=== PATIENT | female | born 1985 | race Caucasian/White ===

== ENCOUNTER 2016-10-23 11:10 | Emergency (ER) | payer OTHER ==
[2016-10-23 11:35] VITALS: BP 118/64
[2016-10-23] MEDS ORDERED: Ondansetron ODT TAB* 4 MG PO ONE (13:36)
--- NOTE | 2016-10-23 13:58 | UC ---
General HPI - HPI Summary HPI Summary: 30 female presents today complaining of nausea, abdominal tenderness, and a rash that began 2-3 days ago. Patient states it began after eating at a [employer] restaurant. admits to having episodes of diarrhea and states "wherever I touch my abdomen my legs anywhere, it hurts." Patient is also "sick of dealing with nausea." She has been have black stool but admits to using pepto bismol for the past few days to help with symptoms. She has been drinking plenty of fluids. Denies cold like symptoms of coughing and congestion. She has not vomited, states she forces herself not to vomit. As for the rash she states it is very itchy and on her upper chest, and back with a few spots on her arms. She has taken benedryl for the itching but states it makes her drowsy and she does not want to take it anymore. She has not used any new soaps, lotions or detergents and has not eaten any new foods. Denies fever/chills, difficulty breathing, melena, hematochezia and chest pain. Has not had recent contacts with similar rashes, however has had recent contact with influenza. - History of Current Complaint Chief Complaint: UCGI Stated Complaint: RASH,DIARRHEA Hx Obtained From: Patient Onset/Duration: Sudden Onset, Lasting Days Onset Severity: Mild Current Severity: Mild Associated Signs & Symptoms: Positive: Abdominal Pain - tenderness, Diarrhea, Headache, Other - pruritic rash. Negative: Cough, Hematemesis, Melena, Recent Medication Changes - Allergy/Home Medications Allergies/Adverse Reactions: Allergies Allergy/AdvReac Type Severity Reaction Status Date / Time Penicillins Allergy Intermediate Hives, Verified 10/23/16 11:34 Difficulty Breathing Latex Allergy Mild Rash Verified 10/23/16 11:34 Gabapentin Allergy Hallucinati Verified 10/23/16 11:34 ons Strawberries Allergy Intermediate Swelling Uncoded 10/23/16 11:34 Of Face,Lips,& Throat Adhesive Tape Allergy Mild Rash Uncoded 10/23/16 11:34 Seafood AdvReac Mild "Drowsy" Uncoded 10/23/16 11:34 Home Medications: Home Medications Meloxicam [Mobic] 7.5 mg PO DAILY 10/23/16 [History Confirmed 10/23/16] traMADol TAB* [Ultram*] 50 mg PO BID 10/23/16 [History Confirmed 10/23/16] PMH/Surg Hx/FS Hx/Imm Hx Previously Healthy: Yes Endocrine History Of: Denies: Diabetes, Thyroid Disease Cardiovascular History Of: Denies: Cardiac Disorders, Hypertension Respiratory History Of: Reports: Asthma Denies: COPD GI/ History Of: Denies: Ulcer Psychological History Of: Reports: Depression - Surgical History Surgical History: Yes Surgery Procedure, Year, and Place: 2013, sterilization - Family History Known Family History: Positive: Unknown - Social History Alcohol Use: Rare Substance Use Type: None, Prescribed Smoking Status (MU): Current Every Day Smoker Type: Cigarettes Amount Used/How Often: 5 CIGARETTES PER DAY Length of Time of Smoking/Using Tobacco: STARTED SMOKING AT AGE 14 Have You Smoked in the Last Year: Yes Household Exposure Type: Cigarettes Review of Systems Constitutional: Fever, Chills, Fatigue Skin: Rash - itchy, on upper chest and back Eyes: Negative ENT: Negative Respiratory: Negative Cardiovascular: Negative Gastrointestinal: Abdominal Pain - tenderness, Diarrhea, Other - nausea Genitourinary: Negative Motor: Negative Neurovascular: Negative Musculoskeletal: Negative Neurological: Negative Psychological: Negative All Other Systems Reviewed And Are Negative: Yes Physical Exam Triage Information Reviewed: Yes Appearance: Well-Appearing, No Pain Distress, Well-Nourished Vital Signs: Initial Vital Signs Temp 97.3 F 10/23/16 11:31 Pulse 89 10/23/16 11:31 Resp 14 10/23/16 11:31 BP 118/64 10/23/16 11:31 Pulse Ox 99 10/23/16 11:31 Vital Signs Reviewed: Yes Eyes: Positive: Conjunctiva Clear ENT: Positive: Normal ENT inspection, Hearing grossly normal, Pharynx normal Neck: Positive: Supple, Nontender, No Lymphadenopathy Respiratory: Positive: Chest non-tender, Lungs clear, Normal breath sounds Cardiovascular: Positive: RRR, No Murmur, Pulses Normal, Brisk Capillary Refill Abdomen Description: Positive: No Organomegaly, Soft, Other: - diffuse tenderness when lightly palpating anywhere on abdomen, legs, arms. no signs of trauma, ecchymosis, deformitity, distention, or masses.. Negative: CVA Tenderness (R), CVA Tenderness (L), Distended, Guarding, McBurney's Point Tenderness, Peritoneal Signs Bowel Sounds: Positive: Present Musculoskeletal Exam: Normal Neurological Exam: Normal Psychological Exam: Normal Skin: Positive: rashes - small red pustules noted on upper chest and back with some spread to lower back and upper extremities. states it is pruritic. rash highly resembles acne or folliculits and is similar to acne on face. patient states she does not typically get the acne on her back and chest. Dr Knowles also examined the rash and states it resmebles acne but could be the start of some impetigo or folliculitis. rash not noted anywhere else on body. hands are free of rash, no excoriations noted. Some discharge if pustules are opened. culture was obtained. Re-Evaluation - Re-Evaluation First Eval Re-Evaluation Time: 13:05 Change: Improved - relief from nausea with dose of zofran Course/Dx - Course Course Of Treatment: Flu swab was obtained due to patient request and recent contact diagnosed with influenza. It was negative. Zofran was administered for nausea. As for rash a skin culture was taken to determine bacterial or viral causes. Appeared to be a bacterial infection, acne in nature. Due to itchiness and some lesions appearing to be imeptigo or folliculitis Dr Knowles suggested antibiotic treatment. Antihistamine also prescribed for pruritis. Zofran will be prescribed to help with nausea at home, BRAT diet to help with diarrhea and Ibuprofen for body aches. - Differential Dx - Multi-Symptom Differential Diagnoses: Other - viral gastroenteritis, influenza, acne vulgaries , impetigo, eczema, food poisoning Provider Diagnoses: viral gastroenteritis, folliculitis, acne vulgaris - Physician Notifications Discussed Patient Care With: Dr Knowles about rash Discharge - Discharge Plan Condition: Improved Disposition: HOME Prescriptions: Cetirizine* [ZyrTEC*] 10 mg PO DAILY #10 tab Ondansetron ODT TAB* [Zofran Odt TAB*] 4 mg PO Q8H PRN #7 tab.odt PRN Reason: Nausea Sulfamethox/Trimethoprim SS* [Bactrim SS 400/80 TAB*] 1 tab PO BID #10 tab Patient Education Materials: Food Poisoning (ED), Gastroenteritis (ED), Folliculitis (ED) Referrals: Jerilyn Cuenca [Primary Care Provider] - Additional Instructions: Take medication as prescribed to help with nausea and to help with rash/ itchiness. You may also continue taking benedryl at night to help with itching. There is also benedryl cream OTC that you can put on areas that are bothersome. Drink plenty of fluids and get lots of rest. Follow a bland BRAT diet to help with diarrhea. Foods such as bread, rice, applesauce and toast. If symptoms worsen or do not improve please return to UC or follow up with your PCP.
== END 2016-10-23 14:24 | disposition home or self-care (01) ==
LOC: UCCORT 11:10
DX: A08.4 Viral intestinal infection, unspecified (principal); L73.9 Follicular disorder, unspecified; L70.0 Acne vulgaris; Z88.0 Allergy status to penicillin; F17.210 Nicotine dependence, cigarettes, uncomplicated
CPT/HCPCS: 87070; 87077; 87186; 87205; 87502; 99212; A9270-GY; G0463